=== PATIENT | female | born 1960 | race Caucasian/White ===

== ENCOUNTER → 2018-07-27 | Outpatient (CLI) | payer BC ==
--- NOTE | 2018-07-27 16:40 | US ---
EXAM DESCRIPTION: Carotid Duplex: ULTRASOUND. CLINICAL HISTORY: 58 years Female CAROTID ARTERY STENOSIS COMPARISON: None. TECHNIQUE: Transcutaneous scanning utilizing osorio-scale and Doppler modes to evaluate the bilateral carotid systems and vertebral arteries. Percentage of diameter of stenosis or no stenosis recorded will be based upon NASCET criteria. FINDINGS: Peak systolic/end diastolic (CM-Sec) CCA Right 93/30 Left 86/23. ICA Right proximal 52/10, distal 65/30. Left proximal 41/13, mid 65/25. Vertebral Right 48/18 Left 51/22. ECA (PS Only) Right 51 left 49. ICA/CCA peak systolic ratio: Right 0.7 Left 0.8 ICA/CCA end diastolic ratio: Right 1.0 Left 1.1 Vertebral arteries: antegrade flow. Comments: Bilateral atherosclerotic calcifications in the common carotid bifurcations and proximal ICAs. Bilateral spectral broadening in the proximal ICAs. IMPRESSION: 1. Doppler evaluation of the bilateral carotid systems and vertebral arteries shows no hemodynamically significant stenoses. 2. No significant amount of plaque seen in the carotid arteries bilaterally. Bilateral vertebral arteries showed antegrade-cephalad flow. Electronically signed by: Bhargav uRth MD 07/27/2018 4:36 PM CDT
== END ==
LOC: US 08:02
PROVIDERS: ATTEND Family Medicine
DX: I65.23 Occlusion and stenosis of bilateral carotid arteries (principal)

== ENCOUNTER 2019-10-09 14:18 | Emergency (ER) | payer BC, OTHER ==
[2019-10-09 14:51] VITALS: O2SAT 97
[2019-10-09] MEDS ORDERED: POTASSIUM CHLORIDE ELIXIR 20 MEQ/15 ML UD PO ONE (15:18)
--- NOTE | 2019-10-09 15:21 | RAD ---
EXAM DESCRIPTION: Abdomen Series CLINICAL HISTORY: central to rt sided abd pain 24 hours COMPARISON: None. FINDINGS: AP supine and upright views of the abdomen show a nonspecific, nonobstructive bowel gas pattern with no evidence for free intraperitoneal air. No air-filled dilated loops of small bowel are seen. No significant air-fluid levels are identified. No obvious organomegaly is seen. No abnormal calcifications are seen in the expected location of the renal collecting systems. Single view of the chest shows cardiac silhouette and pulmonary vasculature to be within normal limits. Lungs are normally aerated and clear. Small calcified pulmonary nodule in the left mid chest suggest old granulomatous disease. IMPRESSION: Nonspecific abdominal series Electronically signed by: Marcelino Verdugo MD 10/09/2019 3:19 PM CDT
[2019-10-09] MEDS ORDERED: MAGNESIUM HYDROXIDE 30 ML UD PO ONE (15:30)
--- NOTE | 2019-10-09 15:37 | ED.PDOC ---
History of Present Illness - General Chief Complaint: Abdominal Pain Time Seen by Provider: 10/09/19 14:24 Source: patient Exam Limitations: no limitations - History of Present Illness Initial Comments: The patient is a 59-year-old female presented emergency room secondary to abdominal pain that started yesterday. Pain is vague and somewhat achy. It is to the mid abdomen to the right of the umbilicus. It does come and go. Mild nausea but no vomiting. No diarrhea. No fever. No blood in the stool. No syncope or near syncope. No history of pancreatitis or diverticulitis. No rebound or peritoneal signs. No palpable mass. No real point tenderness. No costovertebral angle tenderness. No urinary symptoms. Timing/Duration: 24 hours Severity: moderate Improving Factors: nothing Worsening Factors: nothing Associated Symptoms: loss of appetite, malaise, nausea/vomiting Allergies/Adverse Reactions: Allergies Sulfa Antibiotics Allergy (Verified 10/09/19 15:09) Home Medications: Ambulatory Orders Hydrochlorothiazide 12.5 PO DAILY 10/09/19 Review of Systems - Review of Systems Constitutional: States: no symptoms reported EENTM: States: no symptoms reported Respiratory: States: no symptoms reported Cardiology: States: no symptoms reported Gastrointestinal/Abdominal: States: abdominal pain, nausea Genitourinary: States: no symptoms reported Musculoskeletal: States: no symptoms reported Skin: States: no symptoms reported Neurological: States: no symptoms reported Endocrine: States: no symptoms reported All other Systems: No Change from Baseline Past Medical History (General) - Patient Medical History Hx Seizures: No Hx Stroke: No Hx Dementia: No Hx Asthma: Yes - seasonal Hx of COPD: No Hx Cardiac Disorders: No Hx Congestive Heart Failure: No Hx Pacemaker: No Hx Hypertension: No Hx Thyroid Disease: No Hx Diabetes: No Hx Gastroesophageal Reflux: Yes Hx Renal Disease: No Hx Cancer: No Hx of HIV: No Hx Hepatitis C: No Hx MRSA: No - Vaccination History Hx Influenza Vaccination: Yes - Social History Hx Tobacco Use: No Hx Alcohol Use: No Family Medical History - Family History Mother Family History: No Known Living Status: Unknown Physical Exam - Physical Exam General Appearance: Alert, Comfortable, No apparent distress Eye Exam: bilateral normal Ears, Nose, Throat: hearing grossly normal, normal pharynx Neck: full range of motion, supple Respiratory: lungs clear, normal breath sounds, no respiratory distress, no accessory muscle use Cardiovascular/Chest: normal peripheral pulses, regular rate, rhythm, no edema Peripheral Pulses: radial,right: 2+, radial,left: 2+, dorsalis pedis,right: 2+, dorsalis pedis,left: 2+ Gastrointestinal/Abdominal: soft, other - See history of present illness Rectal Exam: deferred Back Exam: no CVA tenderness, no vertebral tenderness Extremity: normal range of motion, non-tender, normal inspection, no pedal edema 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 There is no fever, no elevation of the white blood cell count and no point tenderness. X-ray does show some constipation in that area. This is the most likely source for the abdominal discomfort and the patient was given a dose of milk of magnesia here. She can additionally take MiraLAX 17 g daily for the next 3 to 5 days. She needs to increase her fluid and fiber intake. ER warnings are given for any worsening including fever or increased point tenderness that could indicate diverticulitis or appendicitis. Patient does understand. Keep routine follow-up with primary care doctor otherwise. heber bradshaw [phone] - Results/Orders Results/Orders: Acute abdominal series shows no acute pathology. She does have some moderate constipation of the ascending and proximal transverse colon. No obstruction. Chronic granulomatous disease in the lung. Laboratory Tests 10/09/19 10/09/19 10/09/19 14:52 14:57 14:57 WBC 7.8 RBC 5.22 Hgb 13.7 Hct 42.2 MCV 80.9 L MCH 26.2 L MCHC 32.4 L RDW 14.9 H Plt Count 238 MPV 7.8 Absolute Neuts (auto) 4.70 Absolute Lymphs (auto) 2.30 Absolute Monos (auto) 0.60 Absolute Eos (auto) 0.10 Absolute Basos (auto) 0.10 Neutrophils % 60.8 Lymphocytes % 29.3 Monocytes % 7.1 Eosinophils % 1.6 Basophils % 1.2 Sodium 140 Potassium 3.2 L Chloride 104 Carbon Dioxide 27 Anion Gap 12.2 BUN 10 Creatinine 0.97 BUN/Creatinine Ratio 10.3 Random Glucose 94 Serum Osmolality 278.2 Calcium 9.5 Total Bilirubin 0.5 AST 35 ALT 51 Alkaline Phosphatase 78 Serum Total Protein 7.5 Albumin 4.5 Globulin 3.0 Albumin/Globulin Ratio 1.5 Amylase 76 Lipase 55 H Urine Color Yellow Urine Appearance Clear Urine pH 5.5 Ur Specific [place] 1.020 Urine Protein Negative Urine Glucose (UA) Negative Urine Ketones Negative Urine Blood Negative Urine Nitrite Negative Urine Bilirubin Negative Urine Urobilinogen 0.2 Ur Leukocyte Esterase Negative Urine RBC 0 Urine WBC 0 Ur Epithelial Cells 1-3 Urine Bacteria 0 Urine Mucus Small Departure - Departure Clinical Impression: Constipation Qualifiers: Constipation type: other constipation type Qualified Code(s): K59.09 - Other constipation Disposition: Discharge to Home or Self Care Condition: Fair Departure Forms: ED Discharge - Pt. Copy, Patient Portal Self Enrollment Instructions: Constipation, Adult (DC) Diet: regular diet Activity: increase activity as tolerated Referrals: SUNNY SOLORIO MD [Primary Care Provider] - 1-2 Weeks Home Medications: Ambulatory Orders Hydrochlorothiazide 12.5 PO DAILY 10/09/19 Additional Instructions: The patient is a 59-year-old female presented emergency room secondary to vague right sided mid abdominal discomfort for the last 24 hours. There is no fever, no elevation of the white blood cell count and no point tenderness. X-ray does show some constipation in that area. This is the most likely source for the abdominal discomfort and the patient was given a dose of milk of magnesia here. She can additionally take MiraLAX 17 g daily for the next 3 to 5 days. She needs to increase her fluid and fiber intake. ER warnings are given for any worsening including fever or increased point tenderness that could indicate diverticulitis or appendicitis. Patient does understand. Keep routine follow-up with primary care doctor otherwise.
[2019-10-09 15:52] VITALS: BP 138/83; TEMP 98.1
== END 2019-10-09 15:45 | disposition home or self-care (01) ==
LOC: ER 14:18
DX: K59.09 Other constipation (principal); R10.9 Unspecified abdominal pain; R11.2 Nausea with vomiting, unspecified